=== PATIENT | female | born 1950 | race Hispanic/Latino ===

== ENCOUNTER 2019-04-16 10:55 | Day surgery (SDC) | payer BC, MEDICARE ==
[~2019-04-16 10:55] MED LIST: GENTAMICIN ONE; XYLOCAINE 2%/ EPI 1:200,000 INFILTRATI ONE
--- NOTE | 2019-04-16 11:17 | Anesthesia Day of Surgery ---
Anesthesia Day of Surgery - Day of Surgery Patient Examined: Yes Patient H&P Reviewed: Yes Patient is NPO: Yes
--- NOTE | 2019-04-16 11:17 | Anesthesia Consultation ---
Anesthesia Consult and Med Hx Date of service: 04/16/19 - Airway Anesthetic Teeth Evaluation: Good ROM Head & Neck: Adequate Mental/Hyoid Distance: Adequate Mallampati Class: Class III Intubation Access Assessment: Possibly Difficult - Pulmonary Exam CTA: Yes - Cardiac Exam Cardiac Exam: RRR - Pre-Operative Health Status ASA Pre-Surgery Classification: ASA2 Proposed Anesthetic Plan: MAC - Pulmonary Hx Smoking: Yes (1/2 PPD) Hx Respiratory Symptoms: No Hx Sleep Apnea: No (PAULY PRE SCREEN LOW RISK) - Cardiovascular System Hx Hypertension: No Hx Heart Attack/AMI: No - Central Nervous System CVA: No - Gastrointestinal Hx Gastroesophageal Reflux Disease: No - Endocrine Hx Renal Disease: No Hx Liver Disease: No Hx Insulin Dependent Diabetes: No Hx Non-Insulin Dependent Diabetes: No Hx Thyroid Disease: No - Other Systems Hx Alcohol Use: Yes (WINE QD) Hx Obesity: No
[2019-04-16] MEDS: VIGAMOX OD PRN ×3 (11:25→11:35)
[2019-04-16] MEDS: TETRACAINE 0.5% OU PRN ×3 (11:25→11:35)
[2019-04-16] MEDS ORDERED: VERSED ONE (12:07)
[2019-04-16] MEDS ORDERED: SUBLIMAZE ONE (12:07)
[2019-04-16] MEDS ORDERED: PRED FORTE 1% OD ONE (12:20)
[2019-04-16] MEDS ORDERED: XYLOCAINE MPF 1% INFILTRATI ONE (12:34)
--- NOTE | 2019-04-16 13:19 | Operative Report ---
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 [employer]SEM[employer]ER [employer] BOARD SURGEON: Sandip ANESTHESIA: Monitored anesthesia care in combination with topical and intracameral anesthesia because of the established specific risk of reflux, arrhythmias, or anxiety attacks associated with ocular manipulation, as well as the difficulty of the concrete tile machine operator to manage such potentially catastrophic events while simultaneously attempting to complete the surgical procedure and was deemed necessary for the patient's safety to have an Hand Iii Cutter present during the procedure whenever possible. An Hand Iii Cutter was utilized to regulate the intravenous sedation of the patient so the patient was cooperative yet not asleep in order for the patient to successfully maintain fixation of the eye on the operating light of the microscope. COMPLICATIONS: [No surgical complications] No blood loss. ALLERGIES: Penicillin PROGNOSIS: Excellent INDICATIONS FOR SURGERY: The patient is undergoing surgery in the hopes of eliminating or improving these visual difficulties. Patient had an anterior lamellar keratoplasty about 2 months ago and the graft never cleared and she experienced worsening in vision. PROCEDURE: After arriving at the surgery center, the patient was given topical anesthetic and antibiotic drops, as noted in the record. The patient was then taken into the operating room and given more anesthetic drops. The eyelids, lashes, and lid margins were scrubbed with Betadine solution, and the patient was draped. The Nurse Hand Iii Cutter administered IV sedation and monitored the patient during the procedure. The eye was then fixated with a 0.12, and a Sinskey hook was used to open the vertical incision between the donor graft and the patient's cornea. Once this was done 360 the cornea was removed and sent to pathology. Epithelial ingrowth cells were noted and removed irrigated alcohol was used on the bed to heal in the remaining epithelial cells then to bed was again irrigated with balanced salt solution. Calipers were used to measure the diameter and vertically and horizontally it measured about 7.2 mm. 7.0 trephine was not available so uses 7.5 mm to cut the donor cornea. Once the field the donor cornea was trimmed using Vannas scissors. On your was copiously rinsed bandage contact lens was placed and was taken to recovery room in stable condition. MEDICATIONS APPLIED AT END OF SURGERY: One drop of Pred Forte and Vigamox The patient was given a shield to wear at night and was instructed not to rub or push on the eye. DISCHARGE SUMMARY: The patient was released in stable condition. The patient and those with the patient were given a written sheet of postoperative instructions and counseling on any abnormal laboratory studies. The patient is to see us tomorrow for follow-up in the office and is to call immediately for any difficulties. Genny Vaughn M.D. Date
--- NOTE | 2019-04-16 13:21 | Short Stay Summary ---
Short Stay Documentation Date of service: 04/16/19 - History H&P: obtained from office - Allergies and Medications Current Medications: Allergies Penicillins Allergy (Verified 04/15/19 13:54) Anaphylaxis Home Medications Medication Instructions Recorded Confirmed Last Taken Type Cannabidiol (Cbd) Extract 15 mg PO QHS 04/15/19 04/15/19 04/15/19 History [Epidiolex] prednisoLONE 1% SOD PHOSP(NF) 1 drops OP TID 04/15/19 04/15/19 04/15/19 History [Prednisol (Nf)] Active Medications Tetracaine HCl (Tetracaine 0.5%) 1 drops OU ONCE PRN PRN Reason: PREOP Stop: 04/16/19 23:59 Last Admin: 04/16/19 11:35 Dose: 1 drops Documented by: - Brief post op/procedure progress note Date of procedure: 04/16/19 Pre-op diagnosis: failed corneal graft right eye Post-op diagnosis: same Procedure: Repeated anterior lamellar keratoplasty right eye Anesthesia: MAC, local Surgeon: MAX KOO Estimated blood loss: none Pathology: list Specimen disposition: to lab Condition: stable (previous graft) - Disposition Condition at discharge: Good Disposition: DC-01 TO HOME OR SELFCARE - Discharge Diagnoses (1) Failed corneal transplant Status: Resolved Short Stay Discharge Plan Follow up with: TASHA GASCA [Other] - 7 Days Forms: Outpatient Surgery DC Inst.
[2019-04-16 13:48] VITALS: BP 101/56
[2019-04-16] MEDS ORDERED: PRED FORTE 1% ONE (14:52)
--- NOTE | 2019-04-16 15:07 | Post Anesthesia Evaluation ---
- Post Anesthesia Evaluation Patient Participated: Yes Airway Patent: Yes Stable Respiratory Function: Yes Nausea/Vomiting: No Temp > 96.8F: Yes Pain Manageable: Yes Adequeate Hydration: Yes Anesthesia Complications: No
== END 2019-04-16 14:20 | disposition home or self-care (01) ==
LOC: OR 10:55
DX: T86.841 Corneal transplant failure (principal); F17.210 Nicotine dependence, cigarettes, uncomplicated; Z88.0 Allergy status to penicillin; Z79.899 Other long term (current) drug therapy; Z98.41 Cataract extraction status, right eye; Z72.89 Other problems related to lifestyle; Z98.890 Other specified postprocedural states
CPT/HCPCS: 65710; 87075; 87116; 88300; J2250; J3010; V2785; 88302; J1580